=== PATIENT | female | born 1965 | race Caucasian/White ===

== ENCOUNTER 2025-11-01 14:26 | Emergency (ER) | payer OTHER, SELFPAY ==
[2025-11-01 14:45] VITALS: BP 135/67
--- NOTE | 2025-11-01 16:44 | ED.MUSCINJ ---
HPI-Injury
General
Chief Complaint: Fall
Source: patient
Exam Limitations: none
Time Seen by Provider: 11/01/25 16:08
Nursing documentation reviewed up to this point in time: agreed with
History of Present Illness-Injury
Is this injury a work related problem?: No
Is pt an associate of [facility],[employer] [facility]/[place]?: No
Initial Injury comments:
Patient to the emergency department for evaluation of head injury contusion after a slip and fall on stairs. Injury occurred approximately 5 days ago. Patient states she was wearing socks and slipped on her wooden steps. States she fell down 3
steps. She hit her lower and mid back on the steps as well as her head. No LOC. Patient complains of headache, confusion, pain and bruising to low back, pain to mid back. To emergency department accompanied by spouse. She denies any abdominal
pain she denies any urinary symptoms. She denies any chest wall pain, denies any shortness of breath or difficulty breathing.
Past History
Past History
ED Past Medical History: Asthma and Hypothyroidism
ED Past Surgical History: Gynecological
Review of Systems
Review of Systems
Allergies reviewed?: Yes
All Other Systems: ROS reviewed and negative except as documented in HPI and ROS
Constitutional: Reports no symptoms
EENT: Reports no symptoms
Respiratory: Reports no symptoms
Cardiac: Reports no symptoms
ABD/GI: Reports no symptoms
: Reports no symptoms
Musculoskeletal: Reports back pain (Pain to middle and lower back)
Skin: Reports other (Bruising to left buttocks)
Neurological: Reports headache
Psychiatric: Reports no symptoms
Musculoskeletal Injury Exam
Musculoskeletal Injury Exam
Middle Back:
Pain with Movement?: Moderate
Tender to palpation?: Moderate
Soft tissue swelling?: None
External deformity and angulation?: None
Joint effusion?: None
Contusion?: Moderate
Hematoma-local bleeding into tissue?: None
Strain- Sprain- Tear (Connective tissue injury)?: Moderate
Crepitus with movement?: No
Joint instability?: No
Malalignment/deformity?: No
Range of motion: Limited
Distal skin color and temperature: normal-warm & good color
Capillary Refill: normal
Normal distal neurovascular exam?: Yes
Bilateral Lower Back:
Pain with Movement?: Moderate
Tender to palpation?: Moderate
Soft tissue swelling?: None
External deformity and angulation?: None
Joint effusion?: None
Contusion?: Moderate
Hematoma-local bleeding into tissue?: Moderate (Left buttock)
Strain- Sprain- Tear (Connective tissue injury)?: Moderate
Crepitus with movement?: No
Joint instability?: No
Malalignment/deformity?: No
Range of motion: Limited
Distal skin color and temperature: normal-warm & good color
Capillary Refill: normal
Normal distal neurovascular exam?: Yes
Phy Exam
General Physical Exam
General Presentation: well appearing and mild distress
General age: appears stated age
General Skin: warm and dry
General Habitus: normal
General Mental: alert
Pulmonary Exam
Pulmonary Exam: no respiratory distress and chest non tender
Gastrointestinal Exam
Gastrointestinal Exam: non tender and soft
Neurological Exam
Neurological Exam: alert, oriented x3, CN II-XII intact, no motor deficits, no sensory deficits, speech normal and normal gait
[place] Coma Scale
Eye Opening: Spontaneous
Verbal Response: Oriented
Motor Response: Obeys Commands
GCS Total Score: 15
Musculoskeletal Exam
Musculoskeletal Exam: neuro vasc intact and other (Moderate pain to middle and lower back. Limited range of motion due to pain. Equal strength and sensation bilaterally.)
Skin Exam
Skin Exam: warm/dry, no rash and other (Large bruise to left buttock)
Psychiatric Exam
Psychiatric Exam: normal mood/affect
Injury Course
Orders/Labs/Results
Orders:
Orders
11/01/25 14:53
CT Head W/o Iv Contrast Urgent
Comment:
Reason For Exam: injury
CR Lumbar Spine Comp Min 4 Vw* Urgent
Comment:
Reason For Exam: injury
Thoracic Spine 4 Views CR [CR Thoracic Spine Min 4 Views] Urgent
Comment:
Reason For Exam: injury
11/01/25 14:54
Cervical Spine 4 or 5 Vw [CR Cervical Spine 4 Or 5 Vw] Urgent
Comment:
Reason For Exam: injury
*Radiology
Radiology exam reviewed: radiology read reviewed
*Pulse Oximetry
SaO2: 100
Oxygen Mode of Delivery: Room air
Patient hypoxic: no
*Critical Care Note
Total Time (30-74mins, 75-104mins- exclusive of procedures): Not Applicable
Update Note
Update Note:
Patient to emergency department for evaluation after slip and fall on steps approximately 5 days ago. States she hit the back of her head on the steps, no LOC. She also reports hitting her middle and low back on steps. She has bruising to her
left buttock. Neurologically she is at her baseline. She reports headache. CT of head completed, no acute findings noted on CT. X-ray of C-spine, T-spine, lumbar spine completed. No acute findings were noted. Discussed results of her x-rays
and exam today with patient and spouse. She will be discharged home, close follow-up with PCP. She will continue ice and ibuprofen for her back symptoms. She also states that she takes Ativan 0.5 mg as needed anxiety. She asked for a
prescription for this. She was given prescription for 6 tablets of Ativan 0.5 mg and will follow-up with her family doctor for refill as needed. She is given instructions on signs and symptoms to return to the emergency department and she is
agreeable to this plan.
ED Attending Note
-
Portions of this chart may have been created with voice recognition software.� Occasional wrong word or��sound alike� substitutions may have occurred due to the inherent limitations of voice recognition software.
Discharge Plan
Departure
Patient Disposition: Home (Routine Discharge)
Date of Disposition: 11/01/25
Time of Disposition: 16:40
Patient with high blood pressure during this ER visit?: No
Condition: Good
Covid-19: Not Applicable
Discharge Problem:
Head injury, Contusion of lower back, Back pain
Instructions: Taking care of bruises, Concussion, Adult (DC), Head Injury in Adults (DC), Contusion (DC), Preventing falls in adults, Ibuprofen
Prescriptions:
New
lorazepam [Ativan] 0.5 mg tablet
0.5 mg PO TID PRN (Reason: anxiety) Qty: 6 0RF
ibuprofen 600 mg tablet
600 mg PO Q6H PRN (Reason: Pain) Qty: 20 0RF
Stand Alone Forms: Return to Work
Activity Restrictions/Additional Instructions:
Follow-up with your family doctor.
Interventions
Interventions:
*ED COVID-19 Vaccine History Last Done: 11/01/25 14:45
*ED Influenza Vaccine History Last Done: 11/01/25 14:45
[facility] Risk Assessment Tool Last Done: 11/01/25 16:47
*Risk Screen - Suicide (C-SSRS) Last Done: 11/01/25 14:45
ED-Musculoskeletal Assessment Last Done: 11/01/25 16:48
ED- Neurological Assessment Last Done: 11/01/25 16:48
ED-Skin Assessment Last Done: 11/01/25 16:48
Discharge Date and Time
Print Language: [id number]
== END 2025-11-01 16:54 | disposition home or self-care (01) ==
LOC: EMR 14:26
PROVIDERS: EMERGENCY PHYSICIAN Emergency Medicine; FAMILY PHYSICIAN Internal Medicine
DX: S30.0XXA Contusion of lower back and pelvis, initial encounter (principal); S20.224A Contusion of middle back wall of thorax, initial encounter; S09.90XA Unspecified injury of head, initial encounter; M54.50 Low back pain, unspecified; R51.9 Headache, unspecified; R41.0 Disorientation, unspecified; W10.9XXA Fall (on) (from) unspecified stairs and steps, initial encounter; E03.9 Hypothyroidism, unspecified; J45.909 Unspecified asthma, uncomplicated; E05.00 Thyrotoxicosis with diffuse goiter without thyrotoxic crisis or storm; Z88.8 Allergy status to other drugs, medicaments and biological substances; Z91.013 Allergy to seafood
CPT/HCPCS: 99284; 70450; 72050; 72074; 72110